=== PATIENT | male | born 1935 | race Caucasian/White ===

== ENCOUNTER 2017-07-09 19:04 | Observation (INO) | payer OTHER, MEDICARE ==
--- NOTE | 2017-07-09 19:22 | CPEKG ---
Heart Rate: 80 RR Interval: 750 P-R Interval: 256 QRSD Interval: 100 QT Interval: 424 QTC Interval: 490 QRS [place]: -68 T Wave [place]: 46 EKG Severity - ABNORMAL ECG - EKG Impression: ATRIAL-PACED RHYTHM EKG Impression: LEFT ANTERIOR FASCICULAR BLOCK EKG Impression: BORDERLINE PROLONGED QT INTERVAL Electronically Signed By: Anny Blount 09-Jul-2017 22:10:09
[2017-07-09] MEDS ORDERED: NS 500 ML IV ONE ×2 (19:25→20:40)
--- NOTE | 2017-07-09 19:25 | EDPHY ---
H & P Time Seen by Provider: 07/09/17 19:07 HPI/ROS: CHIEF COMPLAINT: Syncope HISTORY OF PRESENT ILLNESS: The patient is an 81-year-old male with a history of pacemaker, hypertension and high cholesterol who presents to the emergency department after having a witnessed syncopal episode. Patient was eating intact in restaurant when he was noted to have a syncopal episode. No trauma or fall. He was noted to have a low blood pressure on EMS arrival of 80/40. At this time the patient is feeling better. He has no chest pain or shortness of breath. No lightheadedness or dizziness. Patient states that he is at his baseline. However, it is noted the patient does not recall the name of the restaurant. He does not recall the location of his restaurant or his address. Patient has difficulty recalling his medications. The patient denies ACS or acute RI. Patient denies history of stroke. REVIEW OF SYSTEMS: My complete review of systems is negative except as mentioned in the HPI. Past Medical/Surgical History: Hypertension, high cholesterol, sick sinus syndrome Past surgical history: Includes Pacer placement Smoking Status: Former smoker Physical Exam: Vitals noted GENERAL: Well-appearing, in no acute distress, alert. HEENT: Eyes normal to inspection, normal pharynx, no signs of dehydration. NECK: [No thyromegaly, no lymphadenopathy, supple. RESPIRATORY: Clear to auscultation bilaterally, no rales, rhonchi or wheezing. CVS: Regular rate and rhythm, no rubs, murmurs, or gallops. ABDOMEN: Soft, nontender, nondistended, no organomegaly. BACK: Normal to inspection, no CVA tenderness. SKIN: Normal color, no rash, warm, dry. No pallor. EXTREMITIES: No pedal edema, no calf tenderness, no Homans sign or cords, no joint swelling. NEURO/PSYCH: Higher functions: Alert and Oriented x3. Normal speech and cognition. Normal mood and affect. Poor short-term memory. Cranial nerves: Normal as tested. Cerebellar: Normal as tested. Good finger to nose, good [id number], normal gait. Peripheral exam: Normal motor exam. Normal sensation. Normal reflexes. Constitutional: Initial Vital Signs Temperature (C) 36.6 C 07/09/17 19:12 Heart Rate 71 07/09/17 19:12 Respiratory Rate 17 07/09/17 19:12 Blood Pressure 120/71 07/09/17 19:12 O2 Sat (%) 94 07/09/17 19:12 O2 Delivery Mode Room Air Allergies/Adverse Reactions: No Known Allergies Allergy (Unverified 02/22/16 08:40) Home Medications: Medication Instructions Recorded Aspirin [Aspirin 81mg (OTC)] 81 mg PO DAILY 01/07/13 Nebivolol HCl [Bystolic 5 mg (RX)] 10 mg PO DAILY 01/07/13 Simvastatin [Zocor 40 mg (RX)] 40 mg PO DAILY 01/07/13 Medical Decision Making - Diagnostics Imaging Results: Imaging Impressions Head CT 07/09/17 19:26 Impression: 1. No evidence of acute intracranial abnormality. 2. Moderate diffuse cerebral parenchymal atrophy and chronic microvascular white matter ischemic changes. Findings were communicated by telephone with Dr. LISA CAMP at 2017 20:41 ED Course/Re-evaluation: In the emergency department I discussed possible etiologies with the patient. I answered all his questions. Staff attempted to contact the patient's . He was eating at the restaurant alone. Laboratory studies, EKG, head CT and chest x-ray were ordered. Patient given normal saline 500 mL IV for hydration. Atrial paced rhythm at 80. Left anterior fascicular block. Borderline prolonged QT. No ST or T-wave abnormality. Patient's troponin was negative. His creatinine is mildly elevated at 1.5. Alcohol is 28. I discussed the case with Dr. Richards. He will admit the patient for further observation and care. I discussed the plan with the patient and his . I answered all her questions. Head CT/chest x-ray: Please refer the dictated report by radiology. I discussed the findings. No acute disease on the head or chest. I discussed these results with Dr. Richards Differential Diagnosis: My differential includes but is not limited to syncope, ACS, acute RI, electrolyte abnormality, sugar abnormality, CVA - Data Points Laboratory Results: Laboratory Results 07/09/17 19:27 07/09/17 19:30 07/09/17 07/09/17 07/09/17 19:50 19:34 19:30 WBC RBC Hgb Hct MCV MCH MCHC RDW Plt Count MPV Neut % (Auto) Lymph % (Auto) Dent % (Auto) Eos % (Auto) Baso % (Auto) Nucleat RBC Rel Count Absolute Neuts (auto) Absolute Lymphs (auto) Absolute Monos (auto) Absolute Eos (auto) Absolute Basos (auto) Absolute Nucleated RBC Immature Gran % Immature Gran # PT 12.8 SEC SEC (12.0-15.0) INR 0.94 (0.83-1.16) APTT 24.6 SEC SEC (23.0-38.0) Sodium 139 mEq/L mEq/L (135-145) Potassium 4.4 mEq/L mEq/L (3.5-5.2) Chloride 104 mEq/L mEq/L (97-110) Carbon Dioxide 22 mEq/l mEq/l (22-31) Anion Gap 13 mEq/L mEq/L (8-16) BUN 26 mg/dL H mg/dL (7-23) Creatinine 1.5 mg/dL H mg/dL (0.7-1.3) Estimated GFR 45 Glucose 127 mg/dL H mg/dL (70-100) Calcium 9.0 mg/dL mg/dL (8.5-10.4) Troponin I < 0.012 ng/mL ng/mL (0.000-0.034) Specimen Hemolysis 176 Ethyl Alcohol 28 mg/dL H mg/dL (0-10) 07/09/17 19:27 WBC 8.46 10^3/uL 10^3/uL (3.80-9.50) RBC 4.06 10^6/uL L 10^6/uL (4.40-6.38) Hgb 12.8 g/dL L g/dL (13.7-17.5) Hct 39.4 % L % (40.0-51.0) MCV 97.0 fL fL (81.5-99.8) MCH 31.5 pg pg (27.9-34.1) MCHC 32.5 g/dL g/dL (32.4-36.7) RDW 13.3 % % (11.5-15.2) Plt Count 230 10^3/uL 10^3/uL (150-400) MPV 9.6 fL fL (8.7-11.7) Neut % (Auto) 53.2 % % (39.3-74.2) Lymph % (Auto) 32.7 % % (15.0-45.0) Dent % (Auto) 10.0 % % (4.5-13.0) Eos % (Auto) 3.1 % % (0.6-7.6) Baso % (Auto) 0.6 % % (0.3-1.7) Nucleat RBC Rel Count 0.0 % % (0.0-0.2) Absolute Neuts (auto) 4.50 10^3/uL 10^3/uL (1.70-6.50) Absolute Lymphs (auto) 2.77 10^3/uL 10^3/uL (1.00-3.00) Absolute Monos (auto) 0.85 10^3/uL H 10^3/uL (0.30-0.80) Absolute Eos (auto) 0.26 10^3/uL 10^3/uL (0.03-0.40) Absolute Basos (auto) 0.05 10^3/uL 10^3/uL (0.02-0.10) Absolute Nucleated RBC 0.00 10^3/uL 10^3/uL (0-0.01) Immature Gran % 0.4 % % (0.0-1.1) Immature Gran # 0.03 10^3/uL 10^3/uL (0.00-0.10) PT INR APTT Sodium Potassium Chloride Carbon Dioxide Anion Gap BUN Creatinine Estimated GFR Glucose Calcium Troponin I Specimen Hemolysis Ethyl Alcohol Medications Given: Discontinued Medications Sodium Chloride (Ns) 500 mls @ 1,000 mls/hr IV EDNOW ONE PRN Reason: Protocol Stop: 07/09/17 19:54 Last Admin: 07/09/17 20:02 Dose: 500 mls Departure - Departure Disposition: [facility] Inpatient Acute Clinical Impression: Syncope Qualifiers: Syncope type: unspecified Qualified Code(s): R55 - Syncope and collapse Condition: Good Referrals: Patient,NotPresent [Unknown] - As per Instructions
[2017-07-09 19:33] LABS: PLATELET COUNT 230 10^3/uL (150-400)
[2017-07-09 20:05] LABS: INR 0.94 (0.83-1.16); PROTIME(PATIENT) 12.8 SEC (12.0-15.0)
[2017-07-09] MEDS ORDERED: ACETAMINOPHEN 325 MG TAB PO PRN (20:40)
[2017-07-09] MEDS ORDERED: ONDANSETRON DISINTEGRATING 4 MG TAB PO PRN (20:40)
[2017-07-09] MEDS ORDERED: ONDANSETRON 4 MG/2 ML VIAL IVP PRN (20:40)
--- NOTE | 2017-07-09 22:02 | GHP ---
[f rep st] HISTORY AND PHYSICAL DATE OF ADMISSION: 07/09/2017 CHIEF COMPLAINT: Syncope. HISTORY OF PRESENT ILLNESS: This is an 81-year-old male with dementia who fainted at dinner. He was eating dinner alone. I do not have any clear history from bystanders. He does not really remember the episode at all given his dementia. He notably has had 3 episodes since the beginning of 2018. W ith one he ended up on the ground, unsure exactly how. With another he fainted and was caught by a f riend who was able to hold him. There was no reported seizure activity during that event. Today whe n EMS arrived, his blood pressure was noted to be 80/40. It was normal when he arrived here. Report s a history of an NJ with no stents placed, treated medically. PAST MEDICAL/SURGICAL HISTORY: 1. Dementia. 2. Hyperlipidemia. 3. Hypertension. 4. Pacemaker placed due to sick sinus syndrome. 5. DKA. 6. L5 laminectomy. MEDICATIONS: Please see medication reconciliation. ALLERGIES: No known drug allergies. FAMILY HISTORY: Reviewed and noncontributory. SOCIAL HISTORY: He drinks alcohol. He has never had any withdrawal. He quit smoking years ago. He is accompanied by his . REVIEW OF SYSTEMS: A 10-point review of systems is conducted and is negative except per HPI. PHYSICAL EXAM: VITAL SIGNS: Blood pressure here is 125/67, heart rate 73, respiratory rate 16, satu rating 94% on room air. Temperature is 36.6. GENERAL: The patient is a pleasant man who is resting comfortably. No acute distress. HEENT: Shows him to be normocephalic, atraumatic. CARDIOVASCULAR : Shows him to have a very distant S1 and S2. I believe that he is regular. PULMONARY: Exam shows lungs clear to auscultation bilaterally. There is no respiratory distress. ABDOMEN: Soft, nontend er, nondistended. SKIN: Exam shows no rash. : Exam shows no Larson. NEUROLOGIC: Shows him to b e alert and oriented. He is answering questions appropriately, though does not recall recent events. PSYCHIATRIC: Shows normal mood and affect. EXTREMITIES: Shows no lower extremity edema. LABS: Alcohol level is 28. Creatinine is 1.5, glucose 127. Troponin is negative. INR 0.94. Hemog lobin is 12.8. DATA: 1. Head CT is reported as normal. 2. Chest x-ray, which I personally viewed and interpreted, shows a pacemaker, but nothing acute. 3. Electrocardiogram, which I personally reviewed and interpreted, shows atrial paced rhythm. He potter s a left anterior fascicular block. There is nothing acutely ischemic, though he does have a borderl ine prolonged QT interval. IMPRESSION AND PLAN: 1. Syncope: Very limited history. I think it is reasonable to perform a cardiac evaluation while h ere. We will monitor on telemetry, trend troponins, have his pacemaker interrogated, check an echoca rdiogram tomorrow. It may have been vagal versus mild dehydration in the setting of slightly elevate d creatinine. We will give him 1 liter of normal saline. I will have physical therapy and OT evalua te him tomorrow. 2. Mild acute kidney injury: His baseline creatinine seems to be about 1.3. He is 1.5 today. I potter ve given him some hydration. We will recheck tomorrow. 3. Anemia: Hemoglobin is 12.8. This is his recent baseline. 4. Alcohol use: No history of withdrawal. He has a mildly elevated alcohol level. 5. Hyperlipidemia: Continue statin. 6. Hypertension: Continue irbesartan. Consider changing this if his creatinine continues to be ji vated. 7. Code status is full. 8. Venous thromboembolism risk is moderate to high. I will give him low-dose Lovenox. /[id number]/MODL
[2017-07-09] MEDS ORDERED: MELATONIN 3 MG TAB PO PRN (23:49)
[2017-07-10 04:33] LABS: PLATELET COUNT 173 10^3/uL (150-400)
[2017-07-10] MEDS ORDERED: NON-FORMULARY NEW DRUG (Memantine Hcl [Memantine Hcl] 10 MG) PO SCH (09:00)
[2017-07-10] MEDS ORDERED: ASPIRIN EC 81 MG TAB PO SCH (09:00)
[2017-07-10] MEDS ORDERED: MEMANTINE HCL 5 MG TAB PO SCH (09:00)
[2017-07-10] MEDS ORDERED: IRBESARTAN 150 MG TAB PO SCH (09:00)
[2017-07-10] MEDS ORDERED: NON-FORMULARY NEW DRUG (Nebivolol Hcl [Bystolic] 10 MG) PO SCH (09:00)
[2017-07-10] MEDS ORDERED: ATORVASTATIN CALCIUM 40 MG TAB PO SCH (09:00)
[2017-07-10] MEDS ORDERED: NEBIVOLOL HCL 5 MG TAB PO SCH (09:00)
[2017-07-10] MEDS ORDERED: ENOXAPARIN 30 MG/0.3 ML SYR SC SCH (09:00)
[2017-07-10] MEDS ORDERED: CITALOPRAM 20 MG TAB PO SCH (09:00)
--- NOTE | 2017-07-10 10:26 | ECHO ---
[email or web address] [address] [address] Main: [phone] Fax: Transthoracic Echocardiogram Name: JUAN LUIS DAMON MR#: [id number] Study Date: 07/10/2017 Study Time: 08:34 AM Date of : 1935 Age: 81 year(s) Height: 188 cm (74 in.) Weight: 86.18 kg (190 lb.) BSA: 2.13 m2 Gender: Male Examination: Echo Indication: Image Quality: Adequate Contrast: Requested by: Devante Richards BP: 147 mmHg/92 mmHg Heart Rate: Rhythm: Indication: Procedure Staff Gate Supervisor: Anuja Marti RDCS Reading Physician: All Whiting MD Requesting Provider: Conclusions: Normal study Measurements: Chambers Valvular Assessment AV/MV Valvular Assessment TV/PV Normal Normal Normal Name Value Range Name Value Range Name Value Range Ao Shi (2D): 3.2 cm (1.4 cm-2.6 AV meanP mmHg ( - ) TR Vmax: 2.69 mm/s ( - ) cm) SHER (VTI): 3.1 cm ( - ) TR PGmax: 29 mmHg ( - ) IVSd (2D): 1.3 cm (0.6 cm-1.1 MV E Vmax: 0.52 m/s ( - ) syst. PAP: 34 mmHg ( - ) cm) MV A Vmax: 1.02 m/s ( - ) PV Vmax: 0.83 m/s (0.6 m/s-0.9 LVDd (2D): 3.3 cm (4.2 cm-5.9 MV E/A: 0.51 ( - ) m/s) cm) MV PHT: 0.073 s ( - ) PV PGmax: 3 mmHg ( - ) LVDs (2D): 2.4 cm (2.1 cm-4 cm) MVA (PHT): 3.0 s ( - ) LVPWd (2D): 1.2 cm (0.6 cm-1 cm) LVOTd 2.3 cm 2.3 cm mm LVEF (BP): 51 % (>=55 %) RVDd(2D): 2.8 cm (1.9 cm-3.8 cmmm) Continued Measurements: Chambers Valvular Assessment AV/MV Valvular Assessment TV/PV Name Value Name Value Name Value LADs: 3.8 cm MV DecTime: 222 m/s CVP (est.): 5 mmHg LADs Lon.5 cm MV E' Septal: 0.04 m/s LA Area: 21.4 cm2 MV E/E' Septal: 11.90 LA Volume: 72 ml MV E/E' Lateral: 9.60 LA Volume Index: 33.8 ml/m2 Patient: JUAN LUIS DAMON Study Date: 07/10/2017 Page 1 of 2 08:34 AM RA Area: 17.4 cm2 Additional Vessels Name Value Ao Ascendin.4 cm Inferior Vena Cava: 1.5 cm Findings: Left Ventricle: Normal size left ventricle. No LV hypertrophy. Normal global systolic LV function. EF is 51 %. No regional wall motion abnormality. Diastolic dysfunction is present. . Right Ventricle: Normal size right ventricle. Normal RV function. There is a pacemaker lead noted in the right ventricle. Left Atrium: The left atrium is normal in size. Right Atrium: The right atrium is normal in size. Mitral Valve: The mitral valve is normal in appearance and function. Mild mitral valve regurgitation is present. No mitral stenosis is present. Aortic Valve: The aortic valve is normal in appearance and function. There is no aortic valve regurgitation. No aortic valve stenosis is present. Tricuspid Valve: The tricuspid valve is normal in appearance and function. Mild tricuspid regurgitation is present. The pulmonary artery pressure is normal. Right ventricular systolic pressure measures 34mmHg. Pulmonic Valve: The pulmonic valve is normal in appearance and function. There is no pulmonic regurgitation seen. Aorta: The aorta is normal. Normal size aortic root measuring 3.2 cm. Normal size ascending aorta measuring 3.4 cm. IVC: The IVC is normal sized. Pericardium: No pericardial effusion. No pleural effusion. (No Signature Object) Patient: JUAN LUIS DAMON Study Date: 07/10/2017 Page 2 of 2 08:34 AM [id number]
[2017-07-10 14:20] VITALS: BP 150/91
--- NOTE | 2017-07-10 16:49 | GDS ---
[f rep st] DISCHARGE SUMMARY DISCHARGE DIAGNOSES: 1. Presumed syncope, possibly orthostatic or vasovagal event. 2. Dementia. 3. Presence of a pacemaker secondary to sick sinus syndrome. No abnormal rhythm detected on interro gation on the day of discharge. 4. Hypertension. 5. Hyperlipidemia. CONSULTANTS: None. IMAGINING STUDIES/PROCEDURES: 1. Head CT July 09, 2017, showed no evidence of acute intracranial abnormality, though diffuse cere bral atrophy and chronic microvascular ischemic changes were noted. 2. Echocardiogram July 10, 2017, showed an ejection fraction of 51%. No wall motion abnormalities. Diastolic dysfunction was present. HISTORY: For details, please see the history and physical dated July 09, 2017. In brief, the patie nt is an 81-year-old male with a history of dementia, hypertension, and sick sinus syndrome with pace maker present, who presented to the emergency department after a presumed syncopal event. There was no clear report from witnesses, and the patient does not remember what occurred. He was found to be slightly hypotensive on EMS arrival at 80/40, was brought to the emergency department, admitted for [facility] evaluation. HOSPITAL COURSE: The patient admitted to the progressive care unit. Cardiac evaluation was performe d. He had negative troponins and echocardiogram showed normal left ventricular systolic function. H is pacemaker was interrogated and showed no abnormal arrhythmias. I suspect this may have been a vas ovagal event versus orthostasis or possibly postprandial hypotension versus alcohol-induced. He has not been orthostatic or hypotensive here; in fact, his blood pressure is a bit on the high side on day of discharge at 150/91. Therefore, he will continue all his outpatient antihypertensives as pr eviously prescribed. I also recommend he eat his meals slowly, remain seated for 30 minutes after ea ting, and rise slowly from a seated position. In addition, we discussed cessation of alcohol as this may have provoked his syncopal event, especially given evidence of volume depletion with acute kidne y injury and creatinine of 1.5 on arrival. This did normalize with IV fluids. He is completely asym ptomatic and wishes to be discharged home. DISCHARGE: Patient is discharged home in stable condition. DISCHARGE MEDICATIONS: Please see [facility] for completed outpatient medication list. There are no n ew medications on discharge. FOLLOWUP: The patient will follow up with primary care provider. /[id number]/MODL
== END 2017-07-10 14:45 | disposition home or self-care (01) ==
LOC: EDUNIT# → F2W 22:03
PROVIDERS: ADMIT Student in an Organized Health Care Education/Training Program; ATTEND Hospitalist
DX: R55 Syncope and collapse (principal); F03.90 Unspecified dementia, unspecified severity, without behavioral disturbance, psychotic disturbance, mood disturbance, and anxiety; I49.5 Sick sinus syndrome; N17.9 Acute kidney failure, unspecified; F10.10 Alcohol abuse, uncomplicated; I10 Essential (primary) hypertension; E78.5 Hyperlipidemia, unspecified; Z87.891 Personal history of nicotine dependence; Z95.0 Presence of cardiac pacemaker
CPT/HCPCS: 70450; 71046; 93005; 93306; 97161; 97165; G0378; G8978; G8979; G8980; G8987; G8988; G8989; J1650; G0480

== ENCOUNTER 2017-10-19 09:48 | Inpatient (IN) | payer OTHER, MEDICARE ==
--- NOTE | 2017-10-19 10:10 | CPEKG ---
Heart Rate: 71 RR Interval: 845 P-R Interval: 222 QRSD Interval: 120 QT Interval: 436 QTC Interval: 474 P [place]: 0 QRS [place]: -61 T Wave [place]: 43 EKG Severity - ABNORMAL ECG - EKG Impression: ATRIAL-PACED COMPLEXES EKG Impression: FIRST DEGREE AV BLOCK EKG Impression: INCOMPLETE RBBB AND LAFB Electronically Signed By: Esme Noland 19-Oct-2017 14:51:04
--- NOTE | 2017-10-19 10:11 | EDPHY ---
H & P Stated Complaint: R sided weakness Time Seen by Provider: 10/19/17 09:52 HPI/ROS: CHIEF COMPLAINT: Right-sided weakness Limitations: Dementia, patient unable to provide any clinical history HISTORY OF PRESENT ILLNESS: 82-year-old male with dementia presents with right- sided weakness. Last seen normal at 9:00 p.m. last evening. Caregiver arrived this morning at 9:00 a.m. and found the patient on the floor with right-sided weakness and slurred speech. Scalp abrasions noted, likely struck an object in bedroom during the fall. Unable to get off floor because of right sided weakness. The patient does not recall what happened and states that he feels fine. He does not notice the right-sided weakness. No HART/neck pain. REVIEW OF SYSTEMS: complete 10 point ROS negative except at noted in the HPI - Personal History Current Tetanus/Diphtheria Vaccine: Unsure Current Tetanus Diphtheria and Acellular Pertussis (TDAP): Unsure Tetanus Vaccine Date: 2008 - Medical/Surgical History Hx Asthma: No Hx Chronic Respiratory Disease: No Hx Diabetes: No Hx Cardiac Disease: Yes Hx Renal Disease: No Hx Cirrhosis: No Hx Alcoholism: No Hx HIV/AIDS: No Hx Splenectomy or Spleen Trauma: No Other PMH: Pacemaker, Sick sinus, HTN, hyperlipidemia. - Social History Smoking Status: Former smoker Alcohol Use: None Drug Use: None Additional Social History: Lives at [facility] - Physical Exam Exam: General Appearance: Alert, pleasant, speech is slurred Head: abrasions superior aspect of scalp Eyes: Pupils equal and round, no conjunctival pallor or injection ENT, Mouth: Mucous membranes moist Neck: Normal inspection Respiratory: Rales at bases Cardiovascular: Regular rate and rhythm Gastrointestinal: Abdomen is soft and nontender Neurological: Alert, right-sided weakness, involving the right upper extremity greater than the right lower extremity, right facial droop that spares the forehead, sensory intact to light touch, gait not assessed Skin: Warm and dry Extremities: Normal inspection, no tenderness Psychiatric: Mood and affect normal Constitutional: Initial Vital Signs O2 Sat (%) 94 10/19/17 09:52 O2 Delivery Mode Nasal Cannula O2 (L/minute) 2 Allergies/Adverse Reactions: No Known Allergies Allergy (Unverified 02/22/16 08:40) Home Medications: Medication Instructions Recorded Aspirin [Aspirin 81mg (*)] 81 mg PO DAILY 10/19/17 Atorvastatin Calcium [Lipitor 40 40 mg PO DAILY 10/19/17 mg (*)] Citalopram Hydrobromide 10 mg PO DAILY 10/19/17 [Citalopram HBr] Irbesartan [Avapro 150 mg (*)] 150 mg PO DAILY 10/19/17 Memantine HCl [Memantine HCl ER] 28 mg PO DAILY 10/19/17 Nebivolol HCl [Bystolic] 10 mg PO DAILY 10/19/17 QUEtiapine FUMARATE [Seroquel 25 37.5 mg PO DAILY 10/19/17 mg (*)] Medical Decision Making - Diagnostics EKG Interpretation: EKG interpreted by me reveals an atrial paced rhythm, rate 71, no ST or T segment changes. Interpretation: Abnormal EKG Imaging Results: Head CT 10/19/17 09:51 Impression: 1. Elderly brain with atrophy and probable white matter small vessel disease. 2. Negative for hemorrhage or definite acute cortical ischemia. Results called and discussed with ALICIA CAMPOS M.D. on 10/19/2017 at 11:17. Head CTA 10/19/17 09:51 Impression: 1. Negative for hemodynamically significant stenosis and no significant calcified plaque formation. 2. See above report for additional findings. CT Angiography of the Head With Attention to the [place] Reason for examination: Right facial droop and weakness; evaluate for arterial occlusive disease. Technique: A spiral acquisition was performed from the base of the brain to the vertex during rapid intravenous administration of 95 mL of Isovue-370. This contrast volume was utilized for evaluation of the neck and head. Axial images are obtained at 0.6 mm thickness and the examination is reviewed on the workstation in multiple window and level settings. Sagittal and coronal reformats are performed and three-dimensional reformations are performed by the radiologist on the workstation. Dose reduction techniques were utilized. Findings: There is excellent arterial opacification. The great vessels at the base of the brain are normal in appearance. The anterior and middle cerebral arteries appear normal. The [place] is intact with both anterior and posterior communicating arteries identified. The basilar artery as well as posterior cerebral arteries are normal. No regions of stenosis are identified. No hemorrhages are seen and no vascular malformations are identified. No areas of abnormal perfusion are identified and there are no findings to suggest cortical ischemia. Impression: Normal CT angiography of the head with attention to the great vessels of the [place]. Results called and discussed with ALICIA CAMPOS M.D. on 10/19/2017 at 11:39. Note: All stenoses are calculated using NASCET Criteria. . Neck CTA 10/19/17 09:51 Impression: 1. Negative for hemodynamically significant stenosis and no significant calcified plaque formation. 2. See above report for additional findings. CT Angiography of the Head With Attention to the [place] Reason for examination: Right facial droop and weakness; evaluate for arterial occlusive disease. Technique: A spiral acquisition was performed from the base of the brain to the vertex during rapid intravenous administration of 95 mL of Isovue-370. This contrast volume was utilized for evaluation of the neck and head. Axial images are obtained at 0.6 mm thickness and the examination is reviewed on the workstation in multiple window and level settings. Sagittal and coronal reformats are performed and three-dimensional reformations are performed by the radiologist on the workstation. Dose reduction techniques were utilized. Findings: There is excellent arterial opacification. The great vessels at the base of the brain are normal in appearance. The anterior and middle cerebral arteries appear normal. The [place] is intact with both anterior and posterior communicating arteries identified. The basilar artery as well as posterior cerebral arteries are normal. No regions of stenosis are identified. No hemorrhages are seen and no vascular malformations are identified. No areas of abnormal perfusion are identified and there are no findings to suggest cortical ischemia. Impression: Normal CT angiography of the head with attention to the great vessels of the [place]. Results called and discussed with ALICIA CAMPOS M.D. on 10/19/2017 at 11:39. Note: All stenoses are calculated using NASCET Criteria. . Imaging: Discussed imaging studies w/ call center team leader Radiologist ED Course/Re-evaluation: This pt presents with rt sided weakness, c/w CVA. Outside the window for IV tpa. CT/CTA head/neck ordered. 1130am-repeat neurologic exam is substantially improved. Normal strength in the right upper and right lower extremities. He has a slight right sided facial droop, also improved. Speech slightly slurred d/t facial droop. 11:50 a.m.-CT/CTA of the head and neck are unremarkable for acute thrombus/ hemorrhage. Pt able to swallow well. Neuro exam remains improved. Aspirin given. CT scan results discussed with the patient and his . The hospitalist service was consulted for admission. Differential Diagnosis: includes though not limited to TIA, CVA, hemorrhage, hypoglycemia, garay's palsy , hyponatremia. - Data Points Laboratory Results: Laboratory Results 10/19/17 10:00 10/19/17 10:00 Medications Given: Discontinued Medications Aspirin (Aspirin) 325 mg PO EDNOW ONE Stop: 10/19/17 11:53 Last Admin: 10/19/17 12:15 Dose: 325 mg Point of Care Test Results: Chemistry 10/19/17 10/19/17 10:04 10:03 POC Sodium 146 mEq/L H mEq/L (135-145) POC Potassium 3.9 mEq/L mEq/L (3.3-5.0) POC Chloride 110 mEq/L mEq/L (97-110) POC BUN 28 mg/dL H mg/dL (7-23) POC Creatinine 1.4 mg/dL H mg/dL (0.7-1.3) POC Glucose 117 mg/dL H mg/dL (70-100) POC Troponin I 0.01 ng/mL ng/mL (0.00-0.08) ISTAT H&H 10/19/17 10:04 POC Hgb 12.9 gm/dL L gm/dL (13.7-17.5) POC Hct 38 % L % (40-51) Departure - Departure Disposition: [facility] Inpatient Acute Clinical Impression: Acute ischemic stroke Condition: Fair
[2017-10-19] MEDS ORDERED: IOPAMIDOL (ISOVUE 370) 100 ML BTL IV ONE (10:17)
[2017-10-19 10:19] LABS: PLATELET COUNT 245 10^3/uL (150-400)
[2017-10-19] MEDS ORDERED: ASPIRIN 325 MG TAB PO ONE (11:52)
--- NOTE | 2017-10-19 15:15 | GHP ---
[f rep st] HISTORY AND PHYSICAL DATE OF ADMISSION: 10/19/2017 CHIEF COMPLAINT: Stroke. HISTORY OF PRESENT ILLNESS: This is an 82-year-old man who was noted to have right-sided weakness to day. He has significant dementia, is unable to explain why he came to the hospital today. However, he seems to answer questions about his current state fairly reliably. Per emergency room notes, he w as last seen normal at 9 p.m. last night. He had a caregiver who arrived who found him on the floor with slurred speech as well as right-sided weakness. He does not really remember this. His right-si ded weakness resolved while he was in the emergency department. He is denying any right-sided numbne ss right now. He essentially feels normal. His review of systems is completely negative. PAST MEDICAL/SURGICAL HISTORY: 1. Dementia. 2. Hyperlipidemia. 3. Hypertension. 4. Pacemaker status post sick sinus syndrome. 5. BKA. 6. L5 laminectomy. MEDICATIONS: Please see medication reconciliation. ALLERGIES: No known drug allergies. FAMILY HISTORY: Reviewed and noncontributory. SOCIAL HISTORY: He occasionally drinks alcohol. He quit smoking. He lives with his . 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 REVIEW OF SYSTEMS: A 10-point review of systems is conducted and is negative except per HPI. PHYSICAL EXAM: Blood pressure 142/83, heart rate 76, respiration rate 18, saturating at 96% on 2 L. Temperature is 36.5. GENERAL: The patient is a pleasant, elderly man who is resting comfortably in no acute distress. HEENT: Shows him to be normocephalic, atraumatic. He has a mild superficial ab rasion on the scalp. CARDIOVASCULAR EXAM: Shows a regular rate and rhythm. No murmurs, rubs, or ga llops. PULMONARY EXAM: Shows lungs clear to auscultation bilaterally. ABDOMINAL EXAM: Soft, nonte nder, nondistended. SKIN EXAM: Showed no rash. EXAM: Showed no Larson. NEUROLOGIC EXAM: Shows him to be alert and oriented x3. He has difficulty remembering recent events. However, he remember s past events fairly well, like his old job. His motor is 5/5 throughout except his right triceps is 4/5 and right hip flexors are 4/5. Sensation to light touch is intact in both the upper and lower e xtremities. Cranial nerve evaluation shows he has a right-sided facial droop as well as right tongue deviation. His speech is not slurred. He has no evidence of aphasia. I did not ambulate him. PSY CHIATRIC EXAM: Shows a normal mood and affect. LABS: CBC is normal. Basic metabolic panel is relatively unremarkable with creatinine of 1.3, potas sium of 4.3. Initial troponin is negative. DATA: 1. Head CT shows an elderly brain with atrophy, but nothing acute. 2. Head and neck CT angiogram showed no significant stenoses. 3. ECG, which I personally viewed and interpreted, shows an atrial paced rhythm. He has a first deg ree AV block. It is nonischemic. IMPRESSION AND PLAN: 1. Transient ischemic attack/cerebrovascular accident: He has very mild deficits when I am examinin g him. Not a tPA candidate due to arriving outside of the time window. Also would not be a candidat e due to mild deficits. We will consult Neurology. Head and neck CT angiograms are unremarkable. Michel snyder had an echocardiogram about 3 months ago which showed an ejection fraction of 51%, no wall motion a bnormalities. Valves are relatively unremarkable. Will check lipids in the morning and monitor him on telemetry. Aspirin will be started and he is already on a statin. Blood pressures are reasonable , would allow for permissive hypertension today. 2. Dementia: Certainly complicates care. I am not sure exactly who is power of document review attorney is but rebekah wilson help to establish that. 3. Hyperlipidemia: He is on a statin already. 4. Hypertension: Will allow permissive hypertension but restart his medications tomorrow. 5. Pacemaker due to sick sinus syndrome: Appears to be functioning on his EKG. 6. Code status: Will empirically make him full code, full tube. This was his status on his last ad mission. /[id number]/MODL
--- NOTE | 2017-10-20 06:46 | PDMN ---
Medical Necessity Medical necessity: Pt meets INPT criteria per MD as of 10/19/17 and [facility] [place]IA (est. LOS >2 MN for eval/mgmt of TIA/CVA with residual deficits - R-sided facial droop and tongue deviation; hx dementia, htn, SSS with pacemaker).
[2017-10-20] MEDS ORDERED: ASPIRIN 325 MG TAB PO SCH (09:00)
[2017-10-20] MEDS ORDERED: ASPIRIN 81 MG CHEWABLE TAB PO SCH (09:00)
--- NOTE | 2017-10-20 09:21 | NEUROPROG ---
Assessment: HOSPITAL NEUROLOGY CONSULT REQUESTING: Devante Richards MD REASON: stroke HPI: 82 year old right-handed man with a history of dementia, SSS s/p PPM, HTN, HLD who presented to the ED yesterday morning due to stroke-like symptoms. Was last seen well night prior to admission by his caregiver around 9pm. Caregiver came to the house the morning of presentation around 9am and found the patient on the ground with slurred speech, right facial droop and right arm/ leg weakness. This was seen on exam in the ED. Patient was seemingly agnostic of his deficits. CT head wo in the ED did not show any acute changes. CTA head /neck showed patent vessels both intra and extracranially. Patient was admitted and found to have deficits of similar nature on the floor. No known prior history of stroke/TIA. ROS: As per the HPI, otherwise a complete 12 point ROS was performed and is negative ALLERGIES AND MEDS: As recorded in the EMR - reviewed and reconciled PFSH: As per the intake H&P by Dr. Richards from yesterday EXAM: VS reviewed in EMR GEN: WDWN laying in NAD HEENT: NCAT, sclera anicteric, conjunctiva not injected, MMM, oropharynx clear, no scalp tenderness NECK: supple, nontender, no meningismus CV: RRR s1 s2 wo m/r/c/g. Carotid pulses 2+ wo bruit NEURO: MS: awake, alert, oriented to self only, but can name hospital when told he is in a hospital. Speech nondysarthric. No language disturbance. Follows commands. Attends to both sides. Recent/remote memory grossly intact. Mood euthymic. Good fund of knowledge. CN: pupils 3mm round and reactive. Unable to visualize fundi VFF. Primary gaze centered. Full ocular motility. Facial sensation preserved. Face symmetric. Hearing grossly intact to finger rub. Palatoglossal movements intact. Shoulder shrug and head turn strong. MOTOR: normal bulk/tone. No adventitial movements. Full power throughout. SENSORY: intact/symmetric LT/PP in all extremities. No extinction. COORD: no ataxia FN/HS. Pattie preserved. REFLEX: plantars down. No clonus. Absent DTRS. GAIT: deferred to PT safety eval. DATA REVIEW: Labs reviewed in EMR PERSONALLY INTERPRETED RESULTS AND DATA: CT head wo - nothing acute CTA head/neck - patent vessels IMPRESSION AND RECOMMENDATIONS: // TIA VS. STROKE WITH RAPIDLY RESOLVING DEFICITS Patient with right hemiparesis lasting several hours with resolution sometime after admission to the floor. 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 No cortical signs/symptoms indicated. Will treat as if a vascular event. Possibility of seizure with Simone's paralysis, but no indication of prior seizure history or epilepsy risk. Unlikely an amyloid event given semiology with profound hemiparesis (would have had to involve a large cortical/ juxtacortical area). Was not a tPA candidate due to prolonged LKW time, and S/S not consistent with LVO, so not a ASHLI candidate. 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
[2017-10-20] MEDS: ATORVASTATIN CALCIUM 40 MG TAB PO SCH (12:16)
[2017-10-20] MEDS: CITALOPRAM 20 MG TAB PO SCH (12:16)
[2017-10-20] MEDS: QUEtiapine FUMARATE 25 MG TAB PO SCH (12:16)
[2017-10-20] MEDS: MEMANTINE HCL 28 MG PO SCH (12:21)
--- NOTE | 2017-10-20 14:14 | ECHO ---
[email or web address] [address] [address] Main: [phone] Fax: Transthoracic Echocardiogram Name: JUAN LUIS DAMON MR#: [id number] Study Date: 10/20/2017 Study Time: 10:40 AM Date of : 1935 Age: 82 year(s) Height: 182.9 cm (72 in.) Weight: 82.1 kg (181 lb.) BSA: 2.04 m2 Gender: Male Examination: Echo Indication: right hemiparesis; h/o pacemaker and ID Image Quality: Technically Difficult Contrast: Requested by: Stas Pennington BP: 140 mmHg/79 mmHg Heart Rate: Rhythm: Indication: right hemiparesis; h/o pacemaker and ID Procedure Staff Electric Well Logging Operator: Vernell Pardo [facility] Reading Physician: Vincent Belcher MD Requesting Provider: Conclusions: Normal size left ventricle. No LV hypertrophy. Normal global systolic LV function. EF is 65 %. Normal RV function. There is a pacemaker lead noted in the right ventricle. 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 The mitral valve is normal in appearance. Mild mitral valve regurgitation is present. No mitral stenosis is present. The aortic valve is tri-leaflet and functions normally. There is no aortic valve regurgitation. No aortic valve stenosis is present. There is no significant tricuspid valve regurgitation. Normal size aortic root measuring 2.9 cm. Normal size ascending aorta measuring 3.2 cm. Possible subtle anterior hypokinesis . No previous. Measurements: Chambers Valvular Assessment AV/MV Valvular Assessment TV/PV Normal Normal Normal Name Value Range Name Value Range Name Value Range Ao Shi (MM): 2.9 cm (2.2 cm-3.7 AV Vmax: 1.18 m/s (1 m/s-1.7 PV Vmax: 1.24 m/s (0.6 m/s-0.9 cm) m/s) m/s) IVSd (2D): 1.1 cm (0.6 cm-1.1 AV maxP mmHg ( - ) PV PGmax: 6 mmHg ( - ) cm) LVOT Vmax: 0.87 m/s (0.7 m/s-1.1 LVDd (2D): 4.1 cm (4.2 cm-5.9 m/s) cm) MV E Vmax: 0.51 m/s ( - ) MV A Vmax: 1.05 m/s ( - ) Patient: JUAN LUIS DAMON Study Date: 10/20/2017 Page 1 of 2 10:40 AM LVDs (2D): 2.6 cm (2.1 cm-4 MV E/A: 0.49 ( - ) cm) LVPWd (2D): 0.7 cm (0.6 cm-1 cm) LVEF (BP): 65 % (>=55 %) Continued Measurements: Chambers Valvular Assessment AV/MV Name Value Name Value LADs Lon.4 cm MV E' Septal: 0.04 m/s LA Area: 16.9 cm2 MV E/E' Septal: 12.20 LA Volume: 51 ml LA Volume Index: 25.0 ml/m2 Additional Vessels Name Value Ao Ascendin.2 cm Findings: Left Ventricle: Normal size left ventricle. No LV hypertrophy. Normal global systolic LV function. EF is 65 %. Unable to assess diastolic dysfunction. Right Ventricle: Normal size right ventricle. Normal RV function. There is a pacemaker lead noted in the right ventricle. Left Atrium: The left atrium is normal in size. 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 Right Atrium: The right atrium is normal in size. Mitral Valve: The mitral valve is normal in appearance. Mild mitral valve regurgitation is present. No mitral stenosis is present. Aortic Valve: The aortic valve is tri-leaflet and functions normally. There is no aortic valve regurgitation. No aortic valve stenosis is present. Tricuspid Valve: Tricuspid valve not well visualized. There is no significant tricuspid valve regurgitation. Pulmonic Valve: Pulmonary valve not well visualized. Aorta: Normal size aortic root measuring 2.9 cm. Normal size ascending aorta measuring 3.2 cm. IVC: The IVC is normal sized. Pericardium: No pericardial effusion. Exam Comments: (No Signature Object) Patient: JUAN LUIS DAMON Study Date: 10/20/2017 Page 2 of 2 10:40 AM [id number]
--- NOTE | 2017-10-20 16:36 | ASMTCMCOM ---
CM Note CM Note Notes: Pt was admitted with a CVA after being found down at the [facility] by a caregiver. He has a hx of dementia, pacemaker, DKA, HTN. He lives at the [facility] - his Bart does not live there with him. Spoke with Bart [phone] re therapy recommendations: they initially recommended home care and a referral was sent to [facility]. After discussion with the hospitalist and therapists, recommendation was changed to SNF. Discussed SNF options with Bart and she would like [facility] to be first choice. Advised her to provide us another SNF option and she will discuss with a friend and let us know. Referral sent to . CM will follow for d/c needs. Date Signed: 10/20/2017 04:36 PM Electronically Signed By:MALI Nguyen
--- NOTE | 2017-10-20 17:38 | HOSPPROG ---
Hospitalist Progress Note Assessment/Plan: * Acute CVA vs. TIA -still some mild residual deficit - unable to do MRI due to PCM for CVA confirmation -increase ASA 81mg to 325mg -continue statin - LDL at goal -interrogate PCM looking for afib -PT/OT - not at baseline - suspect he will need rehab * Encephalopathy - confused -? due to CVA vs. delirium related to dementia * Dementia * PCM Subjective: confused Objective: Vital Signs Temp Pulse Resp BP Pulse Ox 36.7 C 66 14 125/66 H 95 10/20/17 12:00 10/20/17 12:00 10/20/17 12:00 10/20/17 12:00 10/20/17 12:00 10/19/17 10/20/17 10/21/17 05:59 05:59 05:59 Output Total 100 Balance -100 ECHO - normal EF Laboratory Tests 10/19/17 10/20/17 10:00 05:39 Creatinine 1.3 LDL Cholesterol, Calc 57 L OLD CHART reviewed regarding neurology course - Physical Exam Constitutional: no apparent distress, appears nourished, not in pain Cardiovascular: regular rate and rhythym, no murmur, rub, or gallop Respiratory: no respiratory distress, no rales or rhonchi, clear to auscultation Gastrointestinal: normoactive bowel sounds, soft, non-tender abdomen, no palpable masses Skin: no rashes or abrasions, no fluctuance, no induration Neurologic: weakness (right), No AAOx3 Psychiatric: encephalopathic, poor insight, poor judgement, poor memory, No interacting appropriately, No agitated ICD10 Worksheet Patient Problems: Problems Problem Status Onset Acute ischemic stroke Acute Arthritis of knee, left Acute Syncope Acute
[2017-10-21] MEDS: NEBIVOLOL HCL 5 MG TAB PO SCH (10:36)
[2017-10-21] MEDS: ASPIRIN 325 MG TAB PO SCH (10:37)
[2017-10-21] MEDS: CITALOPRAM 20 MG TAB PO SCH (10:37)
[2017-10-21] MEDS: ATORVASTATIN CALCIUM 40 MG TAB PO SCH (10:37)
[2017-10-21] MEDS: QUEtiapine FUMARATE 25 MG TAB PO SCH (10:38)
[2017-10-21] MEDS: IRBESARTAN 150 MG TAB PO SCH (10:38)
[2017-10-21] MEDS: MEMANTINE HCL 28 MG PO SCH (10:39)
--- NOTE | 2017-10-21 15:26 | ASMTCMCOM ---
CM Note CM Note Notes: [facility] has no bed availability. Pt accepted at [facility] pt Bart ([phone]) second choice SNF. Pt PASRR non-triggered. Pt non-decisional per Hospitalist [place]. Pt likely d/c tomorrow CM to follow. Date Signed: 10/21/2017 03:26 PM Electronically Signed By:MALI Hassan
--- NOTE | 2017-10-21 15:33 | ASMTCMCOM ---
CM Note CM Note Notes: Entered in error Date Signed: 10/21/2017 03:32 PM Electronically Signed By:MALI Hassan
--- NOTE | 2017-10-21 18:11 | HOSPPROG ---
Hospitalist Progress Note Assessment/Plan: * Acute CVA vs. TIA -still some mild residual deficit - unable to do MRI due to PCM for CVA confirmation -increase ASA 81mg to 325mg -continue statin - LDL at goal -interrogated PCM - no afib -PT/OT - not at baseline - needs rehab * Encephalopathy - confused -? due to CVA vs. delirium related to dementia -non-decisional * Dementia * PCM Subjective: Still very impulsive, confused, asking strange questions Objective: Vital Signs Temp Pulse Resp BP Pulse Ox 36.6 C 63 18 143/78 H 94 10/21/17 16:00 10/21/17 16:00 10/21/17 16:00 10/21/17 16:00 10/21/17 16:00 10/20/17 10/21/17 10/22/17 05:59 05:59 05:59 Intake Total 700 Output Total 100 425 Balance -100 275 - Physical Exam Constitutional: no apparent distress, appears nourished, not in pain Cardiovascular: regular rate and rhythym, no murmur, rub, or gallop Respiratory: no respiratory distress, no rales or rhonchi, clear to auscultation Gastrointestinal: normoactive bowel sounds, soft, non-tender abdomen, no palpable masses Skin: no rashes or abrasions, no fluctuance, no induration Neurologic: AAOx3, sensation intact bilaterally Psychiatric: interacting appropriately, not anxious, not encephalopathic, thought process linear ICD10 Worksheet Patient Problems: Problems Problem Status Onset Acute ischemic stroke Acute Arthritis of knee, left Acute Syncope Acute
[2017-10-22] MEDS: CITALOPRAM 20 MG TAB PO SCH (09:12)
[2017-10-22] MEDS: ATORVASTATIN CALCIUM 40 MG TAB PO SCH (09:12)
[2017-10-22] MEDS: ASPIRIN 325 MG TAB PO SCH (09:12)
[2017-10-22] MEDS: NEBIVOLOL HCL 5 MG TAB PO SCH (09:13)
[2017-10-22] MEDS: QUEtiapine FUMARATE 25 MG TAB PO SCH (09:13)
[2017-10-22] MEDS: IRBESARTAN 150 MG TAB PO SCH (09:14)
[2017-10-22] MEDS: MEMANTINE HCL 28 MG PO SCH (09:15)
--- NOTE | 2017-10-22 10:04 | PDIAF ---
- Diagnosis Diagnosis: Stroke Code Status: Full Code - Medication Management Discharge Medications: Medications to Continue on Transfer Atorvastatin Calcium [Lipitor 40 mg (*)] 40 mg PO DAILY 10/19/17 [Last Taken ] Citalopram Hydrobromide [Citalopram HBr] 10 mg PO DAILY 10/19/17 [Last Taken ] Irbesartan [Avapro 150 mg (*)] 150 mg PO DAILY 10/19/17 [Last Taken 10/18/17] Memantine HCl [Memantine HCl ER] 28 mg PO DAILY 10/19/17 [Last Taken 10/18/17] Nebivolol HCl [Bystolic] 10 mg PO DAILY 10/19/17 [Last Taken 10/18/17] QUEtiapine FUMARATE [Seroquel 25 mg (*)] 37.5 mg PO DAILY 10/19/17 [Last Taken 10/18/17] Aspirin [Aspirin 325 mg (*)] 325 mg PO DAILY #30 tab 10/22/17 [Last Taken Unknown] Discharge Medications: Refer to the Discharge Home Medication list for PRN reason. - Orders Services needed: Physical Therapy, Occupational Therapy, Speech Language Pathologist Diet Texture: Dysphagia 3 - Advanced - Moist, Bite-Size, Thin Liquids, Meds Crushed in Puree Additional Instructions: Increase aspirin from 81mg to 325mg - Follow Up Care Current Providers and Referrals: Patient,NotPresent [Unknown] - As per Instructions
[2017-10-22 12:04] VITALS: BP 90/56
--- NOTE | 2017-10-22 13:55 | ASMTCMCOM ---
CM Note CM Note Notes: Pt medically stable for d/c to [facility]. Orders sent in [employer]. Pt Bart updated. Drake with scheduled [facility] transport for 1300/1330. ZABRINA Carter called report. Date Signed: 10/22/2017 01:55 PM Electronically Signed By:MALI Hassan
--- NOTE | 2017-10-22 13:56 | ASDISCHSUM ---
Discharge Information Plan Status:SNF Medically Cleared to Leave: Discharge Date:10/22/2017 01:41 PM D/C Disposition:[facility] Facility ADT D/C Disposition:[facility] Facility Projected Discharge Date:10/23/2017 11:00 AM Transportation at D/C:Wheelchair Van Discharge Delay Reason: Follow-Up Date:10/23/2017 11:00 AM Discharge Slot: Final Diagnosis: Placement Information Referral Type:*Home Health Care Services Referral ID:[id number] Provider Name: Address 1: Phone Number: Address 2: Fax Number: City: Selection Factors: State: Referral Type:*Fpc/SNF Referral ID:[id number] Provider Name:[facility] Address 1:[address] Address 2: City:[place] Selection Factors: State:[place] Patient Contact Information Contact Name:NORIS Relationship: Address:[address] City:[place] Alternate Phone: [facility] [address]/Zip Code:[place] [address] Email: Financial Information Financial Class:Medicare Primary Plan Desc:MEDICARE INPATIENT Primary Plan Number:[id number] Secondary Plan Desc:SEVERO/AYANA SUPPLEMENT Secondary Plan Number:[id number] Assessment Information LACE LACE Length of stay for Answers: 3 days current admission Acuity / Level of Answers: Yes Care: Did the patient have an inpatient admission? Comorbidities - select Answers: Dementia all that apply Other Notes: pacemaker, sick sinus, HTN, hyperlipide agnes , BKA, L5 laminectomy # of Emergency department Answers: 1-2 visits in the last 6 months Score: 11 Date Signed: 10/22/2017 01:53 PM Electronically Signed By:MALI Hassan [facility] CM Progress Note CM Note CM Note Notes: Pt was admitted with a CVA after being found down at the [facility] by a caregiver. He has a hx of dementia, pacemaker, DKA, HTN. He lives at the [facility] - his Bart does not live there with him. Spoke with Bart [phone] re therapy recommendations: they initially recommended home care and a referral was sent to [facility]. After discussion with the hospitalist and therapists, recommendation was changed to SNF. Discussed SNF options with Bart and she would like [facility] to be first choice. Advised her to provide us another SNF option and she will discuss with a friend and let us know. Referral sent to . CM will follow for d/c needs. Date Signed: 10/20/2017 04:36 PM Electronically Signed By:MALI Nguyen [facility] CM Progress Note CM Note CM Note Notes: [facility] has no bed availability. Pt accepted at [facility] which pt Bart ([phone]) second choice SNF. Pt PASRR non-triggered. Pt non-decisional per Hospitalist Otoniel. Pt likely d/c tomorrow CM to follow. Date Signed: 10/21/2017 03:26 PM Electronically Signed By:MALI Hassan [facility] CM Progress Note CM Note CM Note Notes: Entered in error Date Signed: 10/21/2017 03:32 PM Electronically Signed By:MALI Hassan [facility] CM Progress Note CM Note CM Note Notes: Pt medically stable for d/c to [facility]. Orders sent in [employer]. Pt Mar. Drake with scheduled [facility] transport for 1300/1330. ZABRINA Carter called report. Date Signed: 10/22/2017 01:55 PM Electronically Signed By:MALI Hassan Intervention Information
--- NOTE | 2017-10-22 17:52 | GDS ---
[f rep st] DISCHARGE SUMMARY DISCHARGE DIAGNOSES: 1. Acute stroke. 2. Encephalopathy. 3. Dementia. 4. Pacemaker. HISTORY: The patient is an 82-year-old male, who presented after being found at his assisted living with a right-sided hemiparesis and right-sided facial droop. He presented to the emergency room as a stroke alert. His time of onset was unclear so he was not a tPA candidate. His symptoms rapidly re solved and his hemiparesis seemed to completely resolve. We were unable to do an MRI to confirm whet her or not this was a TIA versus a stroke, due to his pacemaker. He does have some mild residual def icits, however, so my suspicion is, is there an element of acute stroke? His deficits are mostly rel ated to the functionality and ability to continue living mostly an independent lifestyle. Decision w as made he would be safest to go to care home facility. Per Neurology, aspirin was increased f rom 81 mg to 325 mg per day. He is already on a statin drug and his LDL is at goal. His pacemaker w as interrogated and there was no evidence of atrial fibrillation. He is transferring to [facility] or further rehabilitation. DISCHARGE MEDICATIONS: Please see computerized record for full detailed list. New medications: Aspirin 325 mg p.o. daily increased from 81 mg p.o. daily. ADDITIONAL DISCHARGE INSTRUCTIONS: 1. Transfer to [facility] for rehabilitation. 2. Ongoing speech therapy for dysphagia. 3. Current diet is a thin liquids. Medications crushed in puree. Greater than 30 minutes' time spent arranging this discharge. Patient was seen and examined by me on date of discharge. /[id number]/MODL
== END 2017-10-22 13:41 | DRG 64 ==
LOC: EDUNIT# → F3N 13:01
PROVIDERS: ADMIT Internal Medicine; ATTEND Internal Medicine
DX: I63.9 Cerebral infarction, unspecified (principal); G93.40 Encephalopathy, unspecified; F03.90 Unspecified dementia, unspecified severity, without behavioral disturbance, psychotic disturbance, mood disturbance, and anxiety; I10 Essential (primary) hypertension; E78.5 Hyperlipidemia, unspecified; I49.5 Sick sinus syndrome; Z87.891 Personal history of nicotine dependence; Z95.0 Presence of cardiac pacemaker
CPT/HCPCS: 82435-PO; 82565-PO; 82947-PO; 84132-PO; 84295-PO; 84484-PO; 84520-PO; 85014-PO; 92523-GN; 92526-GN; 92610-GN; 97112-GP; 97116-GP; 97162-GP; 97165-GO; 97535-GO; G8978-GP-CI; G8978-GP-CJ; G8979-GP-CI; G8980-GP-CI; G8987-GO-CI; G8988-GO-CI; G8996-GN-CJ; G8997-GN-CI; G9168-GN-CL; G9169-GN-CL; G9170-GN-CL; Q9967